=== PATIENT | female | born 1990 | race Caucasian/White ===

== ENCOUNTER → 2017-10-06 | Outpatient (REF) | payer BC ==
[~2017-10-06] MED LIST: IBUP600T22 PO; NORG1TAB74 PO; OMEP40CA48 PO; RIVA15TA PO
== END ==
LOC: ZZSENDIN 13:13
PROVIDERS: ATTEND Obstetrics & Gynecology
DX: I82.499 Acute embolism and thrombosis of other specified deep vein of unspecified lower extremity (principal)
CPT/HCPCS: 85379